=== PATIENT | male | born 1970 | race Caucasian/White ===

== ENCOUNTER → 2018-02-08 | Outpatient (CLI) | payer MEDICARE ==
[2018-02-08 11:38] LABS: Basophils % (A) 0 %; Eosinophils # (A) 0.2 k/uL (0-0.7); Eosinophils % (A) 3 %; HCT 46.9 % (39.0-53.0); HGB 14.8 gm/dL (13.0-17.5); Lymphocytes # (A) 1.1 k/uL (1.0-4.8); Lymphocytes % (A) 15 %; MCH 27.1 pg (25.0-35.0); MCHC 31.6 g/dL (31.0-37.0); MCV 85.7 fL (80.0-100.0); Mean Platelet Volume 8.7; Monocytes # (A) 0.4 k/uL (0-1.0); Monocytes % (A) 5 %; Neutrophils # (A) 5.4 k/uL (1.3-7.7); Neutrophils % (A) 75 %; Platelet Count 206 k/uL (150-450); RBC 5.48 m/uL (4.30-5.90); RDW 12.8 % (11.5-15.5); WBC 7.1 k/uL (3.8-10.6)
[2018-02-08 12:09] LABS: Albumin 4.1 g/dL (3.5-5.0); Calcium 9.9 mg/dL (8.4-10.2); Magnesium 1.5 mg/dL (1.6-2.3); Potassium 4.9 mmol/L (3.5-5.1); Total Bilirubin 0.8 mg/dL (0.2-1.3); Total Protein 6.7 g/dL (6.3-8.2)
[2018-02-08 12:21] LABS: Prothrombin Time 9.8 sec (9.0-12.0)
== END ==
LOC: LABWHC1 10:22
PROVIDERS: ATTEND Internal Medicine Advanced Heart Failure and Transplant Cardiology
DX: Z94.1 Heart transplant status (principal)
CPT/HCPCS: 36415; 80053; 80197; 83735; 85025; 85610

== ENCOUNTER → 2018-12-04 | Outpatient (CLI) | payer MEDICARE ==
[2018-12-04 10:09] LABS: Prothrombin Time 10.7 sec (9.0-12.0)
[2018-12-04 10:19] LABS: Basophils % (A) 0 %; Eosinophils # (A) 0.3 k/uL (0-0.7); Eosinophils % (A) 4 %; HCT 44.3 % (39.0-53.0); HGB 15.2 gm/dL (13.0-17.5); Lymphocytes # (A) 1.4 k/uL (1.0-4.8); Lymphocytes % (A) 22 %; MCH 29.3 pg (25.0-35.0); MCHC 34.3 g/dL (31.0-37.0); MCV 85.6 fL (80.0-100.0); Mean Platelet Volume 8.3; Monocytes # (A) 0.4 k/uL (0-1.0); Monocytes % (A) 6 %; Neutrophils # (A) 4.3 k/uL (1.3-7.7); Neutrophils % (A) 66 %; Platelet Count 176 k/uL (150-450); RBC 5.18 m/uL (4.30-5.90); RDW 15.1 % (11.5-15.5); WBC 6.6 k/uL (3.8-10.6)
[2018-12-04 16:22] LABS: African American GFR (CKD) 67.9 (60.0-200.0); Albumin 4.4 g/dL (3.80-4.90); Albumin/Globulin Ratio 2.44 (1.60-3.17); Anion Gap 10.8 mmol/L (4.00-12.00); BUN/Creat Ratio 13.57 Ratio (12.00-20.00); Calcium 9.4 mg/dL (8.7-10.3); Carbon Dioxide 27.2 mmol/L (21.6-31.8); Globulin 1.8 g/dL (1.6-3.3); Magnesium 1.2 mg/dL (1.5-2.4); Potassium 4.3 mmol/L (3.5-5.5); Total Bilirubin 1.7 mg/dL (0.2-1.2); Total Protein 6.2 g/dL (6.2-8.2)
== END | disposition home or self-care (01) ==
LOC: LABWHC1 09:14
PROVIDERS: ATTEND Internal Medicine Advanced Heart Failure and Transplant Cardiology
DX: Z94.1 Heart transplant status (principal)
CPT/HCPCS: 36415; 80053; 80197; 83735; 85025; 85610

== ENCOUNTER → 2018-12-06 | Outpatient (CLI) | payer MEDICARE | END | disposition home or self-care (01) | LOC: LABWHC1 12:44 | PROVIDERS: ATTEND Internal Medicine Advanced Heart Failure and Transplant Cardiology | DX: Z94.1 Heart transplant status (principal) | CPT/HCPCS: 36415; 80197 ==

== ENCOUNTER → 2018-12-27 | Outpatient (CLI) | payer OTHER, MEDICARE | END | disposition home or self-care (01) | LOC: LABWHC1 14:18 | PROVIDERS: ATTEND Internal Medicine | DX: Z48.21 Encounter for aftercare following heart transplant (principal); Z94.1 Heart transplant status | CPT/HCPCS: 36415 ==

== ENCOUNTER → 2019-10-23 | Outpatient (CLI) | payer MEDICARE ==
[2019-10-23 10:19] LABS: Prothrombin Time 10.2 sec (9.0-12.0)
[2019-10-23 10:45] LABS: Basophils % (A) 1 %; Eosinophils # (A) 0.3 k/uL (0-0.7); Eosinophils % (A) 5 %; HCT 44.2 % (39.0-53.0); HGB 14.5 gm/dL (13.0-17.5); Lymphocytes # (A) 1.5 k/uL (1.0-4.8); Lymphocytes % (A) 21 %; MCH 28.5 pg (25.0-35.0); MCHC 32.8 g/dL (31.0-37.0); MCV 86.8 fL (80.0-100.0); Mean Platelet Volume 9.1; Monocytes # (A) 0.4 k/uL (0-1.0); Monocytes % (A) 5 %; Neutrophils # (A) 5.1 k/uL (1.3-7.7); Neutrophils % (A) 68 %; Platelet Count 189 k/uL (150-450); RBC 5.09 m/uL (4.30-5.90); RDW 12.5 % (11.5-15.5); WBC 7.5 k/uL (3.8-10.6)
[2019-10-23 16:52] LABS: African American GFR (CKD) 57.4 (60.0-200.0); Albumin 4.6 g/dL (3.80-4.90); Albumin/Globulin Ratio 2.19 (1.60-3.17); BUN/Creat Ratio 16.25 Ratio (12.00-20.00); Calcium 9.6 mg/dL (8.7-10.3); Globulin 2.1 g/dL (1.6-3.3); Magnesium 1.5 mg/dL (1.5-2.4); Non-African American GFR(CKD) 49.5 (60.0-200.0); Potassium 5.2 mmol/L (3.5-5.5); Total Bilirubin 0.9 mg/dL (0.3-1.2); Total Protein 6.7 g/dL (6.2-8.2)
== END | disposition home or self-care (01) ==
LOC: LABWHC1 08:34
PROVIDERS: ATTEND Internal Medicine
DX: Z09 Encounter for follow-up examination after completed treatment for conditions other than malignant neoplasm (principal); Z94.1 Heart transplant status
CPT/HCPCS: 36415; 80053; 80197; 83735; 85025; 85610; 86480

== ENCOUNTER → 2020-06-04 | Outpatient (CLI) | payer MEDICARE ==
[2020-06-04 13:12] LABS: Basophils % (A) 0 %; Eosinophils # (A) 0.1 k/uL (0-0.7); Eosinophils % (A) 2 %; HCT 44.5 % (39.0-53.0); Lymphocytes # (A) 1.4 k/uL (1.0-4.8); Lymphocytes % (A) 17 %; MCH 28.3 pg (25.0-35.0); MCHC 33.7 g/dL (31.0-37.0); Mean Platelet Volume 8.7; Monocytes # (A) 0.4 k/uL (0-1.0); Monocytes % (A) 5 %; Neutrophils % (A) 75 %; Platelet Count 220 k/uL (150-450); RDW 12.9 % (11.5-15.5)
[2020-06-04 20:40] LABS: African American GFR (CKD) 67.4 (60.0-200.0); Anion Gap 8.8 mmol/L (4.00-12.00); BUN/Creat Ratio 19.29 Ratio (12.00-20.00); Calcium 9.8 mg/dL (8.7-10.3); Carbon Dioxide 30.2 mmol/L (21.6-31.8); Magnesium 1.5 mg/dL (1.5-2.4); Non-African American GFR(CKD) 58.2 (60.0-200.0); Potassium 4.8 mmol/L (3.5-5.5)
== END | disposition home or self-care (01) ==
LOC: LABWHC1 12:07
DX: Z48.21 Encounter for aftercare following heart transplant (principal); Z94.1 Heart transplant status
CPT/HCPCS: 36415; 80048; 80197; 83735; 85025

== ENCOUNTER → 2020-09-14 | Outpatient (CLI) | payer OTHER, MEDICARE ==
[2020-09-15 15:53] LABS: Albumin 4.4 g/dL (3.80-4.90); Albumin/Globulin Ratio 2.2 (1.60-3.17); Bilirubin, Conjugated 0.3 mg/dL (0.20-0.40); Bilirubin,Unconjugated 0.7 mg/dL; Total Protein 6.4 g/dL (6.2-8.2)
[2020-09-15 15:54] LABS: African American GFR (CKD) 49.4 (60.0-200.0); Anion Gap 14.4 mmol/L (4.00-12.00); BUN/Creat Ratio 16.67 Ratio (12.00-20.00); Calcium 9.2 mg/dL (8.7-10.3); Carbon Dioxide 19.6 mmol/L (21.6-31.8); Non-African American GFR(CKD) 42.6 (60.0-200.0); Potassium 4.7 mmol/L (3.5-5.5)
[2020-09-15 16:00] LABS: Prostate Specific Antigen 3.9 ng/mL (0.0-3.5)
== END | disposition home or self-care (01) ==
LOC: LABWHC1 14:42
PROVIDERS: ATTEND Student in an Organized Health Care Education/Training Program
DX: N28.89 Other specified disorders of kidney and ureter (principal); R97.20 Elevated prostate specific antigen [PSA]; Z94.1 Heart transplant status
CPT/HCPCS: 36415; 80048; 80076; 84153

== ENCOUNTER → 2021-08-11 | Outpatient (CLI) | payer MEDICARE ==
[2021-08-11 14:55] LABS: Basophils # (A) 0.04 X 10*3/uL (0.00-0.10); Basophils % (A) 0.6 %; Eosinophils # (A) 0.29 X 10*3/uL (0.04-0.35); Eosinophils % (A) 4.2 %; HCT 43.9 % (39.6-50.0); HGB 14.2 g/dL (13.0-17.0); Immature Grans, Automated 0.6 %; Lymphocytes % (A) 20.3 %; MCH 27.5 pg (27.0-32.0); MCHC 32.3 g/dL (32.0-37.0); MCV 84.9 fL (80.0-97.0); Mean Platelet Volume 12.1 fL (9.5-12.2); Monocytes # (A) 0.56 X 10*3/uL (0.20-1.00); Monocytes % (A) 8.1 %; NRBC Per 100 WBC 0 /100 WBCS (0.0-0.0); Neutrophils # (A) 4.58 X 10*3/uL (1.80-7.70); Neutrophils % (A) 66.2 %; Platelet Count 191 X 10*3/uL (140-440); RBC 5.17 X 10*6/uL (4.40-5.60); RDW 11.9 % (11.5-14.5); WBC 6.91 X 10*3/uL (4.50-10.00)
[2021-08-11 15:24] LABS: ALT 13 U/L (10-49); AST 11 U/L (14-35); African American GFR (CKD) 61.6 (60.0-200.0); Albumin 4.6 g/dL (3.8-4.9); Alkaline Phosphatase 80 U/L (41-126); BUN/Creat Ratio 14.13 Ratio (12.00-20.00); Blood Urea Nitrogen 21.2 mg/dL (9.0-27.0); Calcium 9.6 mg/dL (8.7-10.3); Carbon Dioxide 24.1 mmol/L (20.0-27.5); Chloride 104 mmol/L (96-109); Chol/HDL Ratio 2.46 Ratio; Globulin 2.3 g/dL (1.6-3.3); Glucose 123 mg/dL (70-110); LDL Cholesterol,Calculated 109.8 mg/dL (0.0-131.0); Non-African American GFR(CKD) 53.1 (60.0-200.0); Potassium 4.5 mmol/L (3.5-5.5); Sodium 142 mmol/L (135-145); Total Protein 6.9 g/dL (6.2-8.2); VLDL Calculation 10.68 mg/dL (5.00-40.00)
== END | disposition home or self-care (01) ==
LOC: LABWHC1 10:33
PROVIDERS: ATTEND Family Medicine
DX: Z00.01 Encounter for general adult medical examination with abnormal findings (principal); E11.65 Type 2 diabetes mellitus with hyperglycemia; Z94.1 Heart transplant status; E29.1 Testicular hypofunction; K21.9 Gastro-esophageal reflux disease without esophagitis
CPT/HCPCS: 80061; 80053; 85025; 84403; 36415; G0103

== ENCOUNTER 2022-01-19 17:53 | Emergency (ER) | payer OTHER, MEDICARE ==
[2022-01-19 19:02] VITALS: TEMP 98.4
[2022-01-19] MEDS ORDERED: BEBTELOVIMAB (EUA) 175 MG/2 ML VIAL IV ONE (20:00)
--- NOTE | 2022-01-19 20:13 | ED ---
General Adult HPI - General Chief complaint: Recheck/Abnormal Lab/Rx Stated complaint: Covid Time Seen by Provider: 01/19/22 19:15 Source: patient Mode of arrival: ambulatory Limitations: no limitations - History of Present Illness Initial comments: [id number] male with past medical history of cardiac transplant presents emergency room and for antibody infusion. He tested positive for Covid on Sunday. Went in to see Dr. Earl today. Cannot take Paxlovid as he is on Tacrolimus. Dr. Earl did call the emergency room at to see if it was feasible for the patient to get antibody infusion. He admits to cough, congestion, body aches. was positive as well. - Related Data Allergies Allergy/AdvReac Type Severity Reaction Status Date / Time nitroglycerin Allergy Unknown Verified 01/19/22 19:02 Penicillins Allergy Unknown Verified 01/19/22 19:02 Review of Systems ROS Statement: Those systems with pertinent positive or pertinent negative responses have been documented in the HPI. ROS Other: All systems not noted in ROS Statement are negative. Past Medical History Past Medical History: Asthma, Diabetes Mellitus Additional Past Medical History / Comment(s): heart transplant -2010 History of Any Multi-Drug Resistant Organisms: None Reported Past Surgical History: No Surgical Hx Reported Additional Past Surgical History / Comment(s): heart transplant 2010 Past Psychological History: No Psychological Hx Reported Smoking Status: Never smoker Past Alcohol Use History: None Reported Past Drug Use History: None Reported General Exam Limitations: no limitations General appearance: alert, in no apparent distress Head exam: Present: atraumatic, normocephalic, normal inspection Eye exam: Present: normal appearance, PERRL, EOMI. Absent: scleral icterus, conjunctival injection, periorbital swelling ENT exam: Present: normal exam, mucous membranes moist Neck exam: Present: normal inspection. Absent: tenderness, meningismus, lymphadenopathy Respiratory exam: Present: normal lung sounds bilaterally. Absent: respiratory distress, wheezes, rales, rhonchi, stridor Cardiovascular Exam: Present: regular rate, normal rhythm, normal heart sounds. Absent: systolic murmur, diastolic murmur, rubs, gallop, clicks GI/Abdominal exam: Present: soft, normal bowel sounds. Absent: distended, tenderness, guarding, rebound, rigid Extremities exam: Present: normal inspection, full ROM, normal capillary refill. Absent: tenderness, pedal edema, joint swelling, calf tenderness Back exam: Present: normal inspection Neurological exam: Present: alert, oriented X3, CN II-XII intact Psychiatric exam: Present: normal affect, normal mood Skin exam: Present: warm, dry, intact, normal color. Absent: rash Course Vital Signs 01/19/22 01/19/22 18:57 20:01 Temperature 98.4 F Pulse Rate 99 74 Respiratory 18 16 Rate Blood Pressure 138/83 133/68 O2 Sat by Pulse 97 97 Oximetry Medical Decision Making - Medical Decision Making On arrival patient was placed into [facility] 11. Antibody infusion is administered after pharmacy approves. Patient be discharged home and is instructed to follow up with primary care doctor in 2-4 days return for any new or worsening symptoms Disposition Clinical Impression: COVID-19, History of heart transplant Disposition: HOME SELF-CARE Condition: Stable Instructions (If sedation given, give patient instructions): Coronavirus Disease 2019 (COVID-19) Additional Instructions: Continue taking your regular medications as directed and follow-up with your doctor in 2-4 days. Return for any new or worsening symptoms Is patient prescribed a controlled substance at d/c from ED?: No Referrals: Delmi Earl III, MD [Primary Care Provider] - 1-2 days Time of Disposition: 20:12
[2022-01-19 20:30] VITALS: BP 133/68; PULSE 74; RESP 16
== END 2022-01-19 21:16 | disposition home or self-care (01) ==
LOC: EC 17:53
DX: U07.1 COVID-19 (principal); J45.909 Unspecified asthma, uncomplicated; E11.9 Type 2 diabetes mellitus without complications; Z94.1 Heart transplant status; Z88.8 Allergy status to other drugs, medicaments and biological substances; Z88.0 Allergy status to penicillin
CPT/HCPCS: 99282; Q0222

== ENCOUNTER → 2022-03-24 | Outpatient (CLI) | payer OTHER, MEDICARE ==
[2022-03-24 14:18] LABS: Basophils # (A) 0.04 X 10*3/uL (0.00-0.10); Basophils % (A) 0.5 %; Eosinophils # (A) 0.27 X 10*3/uL (0.04-0.35); Eosinophils % (A) 3.5 %; HCT 44.4 % (39.6-50.0); HGB 14.7 g/dL (13.0-17.0); Immature Grans, Automated 0.5 %; Lymphocytes # (A) 1.32 X 10*3/uL (0.90-5.00); Lymphocytes % (A) 17.1 %; MCH 27.7 pg (27.0-32.0); MCHC 33.1 g/dL (32.0-37.0); MCV 83.8 fL (80.0-97.0); Mean Platelet Volume 11.6 fL (9.5-12.2); Monocytes # (A) 0.53 X 10*3/uL (0.20-1.00); Monocytes % (A) 6.9 %; NRBC Per 100 WBC 0 /100 WBCS (0.0-0.0); Neutrophils # (A) 5.51 X 10*3/uL (1.80-7.70); Neutrophils % (A) 71.5 %; Platelet Count 220 X 10*3/uL (140-440); RDW 12.3 % (11.5-14.5); WBC 7.71 X 10*3/uL (4.50-10.00)
[2022-03-24 14:23] LABS: African American GFR (CKD) 56.6 (60.0-200.0); BUN/Creat Ratio 13.63 Ratio (12.00-20.00); Blood Urea Nitrogen 21.8 mg/dL (9.0-27.0); Calcium 9.6 mg/dL (8.7-10.3); Chloride 104 mmol/L (96-109); Chol/HDL Ratio 2.43 Ratio; Glucose 114 mg/dL (70-110); LDL Cholesterol,Calculated 60.6 mg/dL (0.0-131.0); Magnesium 1.9 mg/dL (1.5-2.4); Non-African American GFR(CKD) 48.8 (60.0-200.0); Potassium 4.8 mmol/L (3.5-5.5); Sodium 140 mmol/L (135-145)
== END | disposition home or self-care (01) ==
LOC: LABWHC1 09:59
PROVIDERS: ATTEND Internal Medicine
DX: Z94.1 Heart transplant status (principal)
CPT/HCPCS: 36415; 80048; 80061; 80197; 83735; 85025

== ENCOUNTER → 2023-02-14 | Outpatient (CLI) | payer MEDICARE ==
[2023-02-14 16:17] LABS: ALT 23 U/L (10-49); AST 14 U/L (14-35); Albumin 4.7 d/dL (3.8-4.9); Albumin/Globulin Ratio 1.96 Ratio (1.60-3.17); Alkaline Phosphatase 108 U/L (41-126); Blood Urea Nitrogen 19.8 mg/dL (9.0-27.0); Calcium 10.1 mg/dL (8.7-10.3); Carbon Dioxide 26.1 mmol/L (21.6-31.8); Chloride 104 mmol/L (96-109); Chol/HDL Ratio 2.31 Ratio; Creatine Kinase 62 U/L (35-257); Globulin 2.4 d/dL (1.6-3.3); Glucose 77 mg/dL (70-110); LDL Cholesterol,Calculated 72.8 mg/dL (0.0-131.0); Potassium 4.9 mmol/L (3.5-5.5); Sodium 143 mmol/L (135-145); Total Bilirubin 1.1 mg/dL (0.3-1.2); Total Protein 7.1 d/dL (6.2-8.2); Uric Acid 6.8 mg/dL (3.7-8.7); VLDL Calculation 16.74 mg/dL (5.00-40.00)
[2023-02-14 16:24] LABS: Basophils # (A) 0.05 X 10*3/uL (0.00-0.10); Basophils % (A) 0.6 %; Eosinophils # (A) 0.31 X 10*3/uL (0.04-0.35); Eosinophils % (A) 3.6 %; HCT 43.3 % (39.6-50.0); HGB 14.2 d/dL (13.0-17.0); Lymphocytes # (A) 1.99 X 10*3/uL (0.90-5.00); Lymphocytes % (A) 23.3 %; MCH 28.2 pg (27.0-32.0); MCHC 32.8 d/dL (32.0-37.0); MCV 85.9 FL (80.0-97.0); Mean Platelet Volume 11.5 FL (9.5-12.2); Monocytes # (A) 0.52 X 10*3/uL (0.20-1.00); Monocytes % (A) 6.1 %; NRBC Per 100 WBC 0 X 10*3/uL (0.00-0.01); Neutrophils # (A) 5.63 X 10*3/uL (1.80-7.70); Neutrophils % (A) 65.9 %; Platelet Count 210 X 10*3/uL (140-440); RBC 5.04 X 10*6/uL (4.40-5.60); RDW 12.1 % (11.5-14.5); WBC 8.54 X 10*3/uL (4.50-10.00)
[2023-02-14 16:50] LABS: Follicle Stimulating Hormone 4.3 mIU/mL; Luteinizing Hormone 5.6 mIU/mL
== END | disposition home or self-care (01) ==
LOC: LABWHC1 11:09
PROVIDERS: ATTEND Family Medicine
DX: I10 Essential (primary) hypertension (principal); E11.65 Type 2 diabetes mellitus with hyperglycemia; E29.1 Testicular hypofunction; N40.0 Benign prostatic hyperplasia without lower urinary tract symptoms; R94.4 Abnormal results of kidney function studies; Z94.1 Heart transplant status
CPT/HCPCS: 36415; 80053; 80061; 82550; 83001; 83002; 83036; 83970; 84153; 84402; 84403; 84443; 84550; 85025

== ENCOUNTER → 2023-08-24 | Outpatient (CLI) | payer MEDICARE | END | disposition home or self-care (01) | LOC: LABWHC1 08:41 | PROVIDERS: ATTEND Family Medicine | DX: Z53.9 Procedure and treatment not carried out, unspecified reason (principal) ==

== ENCOUNTER → 2023-12-28 | Outpatient (CLI) | payer MEDICARE | END | disposition home or self-care (01) | LOC: LABWHC1 13:20 | PROVIDERS: ATTEND Family Medicine | DX: Z94.1 Heart transplant status (principal) | CPT/HCPCS: 36415; 80053; 80061; 80197; 82043; 82570; 82785; 83036; 83735; 83880; 83970; 84402; 84403; 84443; 85025 ==

== ENCOUNTER → 2024-03-31 | Outpatient (CLI) | payer MEDICARE ==
--- NOTE | 2024-04-01 10:28 | BD ---
EXAMINATION TYPE: Axial Bone Density DATE OF EXAM: 03/31/2024 CLINICAL HISTORY: 53 years old Male. ICD-10 CODE: Z79.52 RETIREMENT (CURRENT) USE OF SYSTEMIC STEROID , Additional History: Height: 63.5 in Weight: 129 lbs pt had a heart transplant 2009 EXAM MEASUREMENTS: Bone mineral densitometry was performed using the [employer] System. Bone mineral density as measured about the Lumbar spine is: ----- L1-L4(G/cm2): 1.074 T Score Values are as follows: ----- L1: -1.3 ----- L2: -1.2 ----- L3: -0.4 ----- L4: -0.8 ----- L1-L4: -0.9 Z Score Values are as follows: ----- L1: -0.6 ----- L2: -0.6 ----- L3: 0.1 ----- L4: -0.2 ----- L1-L4: -0.3 Bone mineral density baseline Bone mineral density about the R hip (g/cm2): 0.761 Bone mineral density about the L hip (g/cm2): 0.818 T Score values are as follows: -----R Neck: -2.4 -----L Neck: -2.3 -----R Total: -2.0 -----L Total: -1.5 Z Score values are as follows: -----R Neck: -1.7 -----L Neck: -1.5 -----R Total: -1.6 -----L Total: -1.2 Bone mineral density baseline FRAX%s: The graph provided illustrates a 7.9% chance for a major osteoporotic fx and a 2.4% chance fo r the hips probability for fx in 10 years time. IMPRESSION: Osteopenia (T Score between -2.5 and -1). There is slightly increased risk of fracture and the patient may be considered for treatment. Re-Screen 2-5 years. NOTE: T-SCORE=SD OF THE YOUNG ADULT MEAN. [facility], , 04/01/2024 10:25 AM
== END | disposition home or self-care (01) ==
LOC: RADBDWWP 13:43
PROVIDERS: ATTEND Internal Medicine
DX: Z13.820 Encounter for screening for osteoporosis (principal); M85.80 Other specified disorders of bone density and structure, unspecified site; Z94.1 Heart transplant status; Z79.52 Long term (current) use of systemic steroids
CPT/HCPCS: 77080

== ENCOUNTER → 2024-05-02 | Outpatient (CLI) | payer MEDICARE ==
[2024-05-02 16:13] LABS: Basophils # (A) 0.05 X 10*3/uL (0.00-0.10); Basophils % (A) 0.6 %; Eosinophils # (A) 0.29 X 10*3/uL (0.04-0.35); Eosinophils % (A) 3.3 %; HCT 40.8 % (39.6-50.0); HGB 13.9 g/dL (13.0-17.0); Lymphocytes # (A) 2.14 X 10*3/uL (0.90-5.00); Lymphocytes % (A) 24.1 %; MCH 28.4 pg (27.0-32.0); MCHC 34.1 g/dL (32.0-37.0); MCV 83.3 FL (80.0-97.0); Mean Platelet Volume 11.4 FL (9.5-12.2); Monocytes # (A) 0.63 X 10*3/uL (0.20-1.00); Monocytes % (A) 7.1 %; NRBC Per 100 WBC 0 X 10*3/uL (0.00-0.01); Neutrophils # (A) 5.75 X 10*3/uL (1.80-7.70); Neutrophils % (A) 64.6 %; Platelet Count 218 X 10*3/uL (140-440); RDW 12.3 % (11.5-14.5); WBC 8.89 X 10*3/uL (4.50-10.00)
[2024-05-02 16:42] LABS: Chol/HDL Ratio 2.42 Ratio; VLDL Calculation 16.56 mg/dL (5.00-40.00)
[2024-05-02 16:43] LABS: ALT 37 U/L (10-49); AST 22 U/L (14-35); Albumin 4.7 g/dL (3.8-4.9); Albumin/Globulin Ratio 1.81 Ratio (1.60-3.17); Alkaline Phosphatase 108 U/L (41-126); BUN/Creat Ratio 15.06 Ratio (12.00-20.00); Blood Urea Nitrogen 27.1 mg/dL (9.0-27.0); Calcium 9.8 mg/dL (8.7-10.3); Chloride 101 mmol/L (96-109); Globulin 2.6 g/dL (1.6-3.3); Glucose 84 mg/dL (70-110); LDL Cholesterol,Calculated 73.8 mg/dL (0.0-131.0); Magnesium 1.7 mg/dL (1.5-2.4); Phosphorus 3.9 mg/dL (2.4-5.1); Potassium 4.8 mmol/L (3.5-5.5); Prostate Specific Antigen 4.93 ng/mL (0.000-3.500); Sodium 138 mmol/L (135-145); T4, Free (Free Thyroxine) 1.33 ng/dL (0.80-1.80); Total Bilirubin 0.8 mg/dL (0.3-1.2); Total Protein 7.3 g/dL (6.2-8.2)
== END | disposition home or self-care (01) ==
LOC: LABWHC1 09:18
PROVIDERS: ATTEND Family Medicine
DX: Z00.01 Encounter for general adult medical examination with abnormal findings (principal); E11.65 Type 2 diabetes mellitus with hyperglycemia; E55.9 Vitamin D deficiency, unspecified; D51.9 Vitamin B12 deficiency anemia, unspecified; E29.1 Testicular hypofunction; N18.31 Chronic kidney disease, stage 3a; N40.0 Benign prostatic hyperplasia without lower urinary tract symptoms; Z79.52 Long term (current) use of systemic steroids; Z94.1 Heart transplant status
CPT/HCPCS: 36415; 80053; 80061; 80197; 82043; 82306; 82570; 82607; 83036; 83735; 83970; 84100; 84153; 84403; 84439; 84443; 85025

== ENCOUNTER → 2024-11-27 | Outpatient (CLI) | payer MEDICARE ==
[2024-11-27 15:12] LABS: Basophils # (A) 0.04 X 10*3/uL (0.00-0.10); Basophils % (A) 0.6 %; Eosinophils # (A) 0.28 X 10*3/uL (0.04-0.35); Eosinophils % (A) 4.1 %; HCT 42.4 % (39.6-50.0); HGB 13.8 g/dL (13.0-17.0); Immature Grans, Automated 0.30 %; Lymphocytes # (A) 1.48 X 10*3/uL (0.90-5.00); Lymphocytes % (A) 21.4 %; MCH 27.7 pg (27.0-32.0); MCHC 32.5 g/dL (32.0-37.0); MCV 85.0 FL (80.0-97.0); Monocytes # (A) 0.56 X 10*3/uL (0.20-1.00); Monocytes % (A) 8.1 %; NRBC Per 100 WBC 0 X 10*3/uL (0.00-0.01); Neutrophils # (A) 4.52 X 10*3/uL (1.80-7.70); Neutrophils % (A) 65.5 %; Platelet Count 217 X 10*3/uL (140-440); RBC 4.99 X 10*6/uL (4.40-5.60); RDW 12.0 % (11.5-14.5); WBC 6.90 X 10*3/uL (4.50-10.00)
[2024-11-27 15:18] LABS: ALT 18 U/L (10-49); AST 14 U/L (14-35); Albumin 4.4 g/dL (3.8-4.9); Albumin/Globulin Ratio 1.63 Ratio (1.60-3.17); Alkaline Phosphatase 115 U/L (41-126); Anion Gap 11.70 mmol/L (4.00-12.00); BUN/Creat Ratio 13.53 Ratio (12.00-20.00); Blood Urea Nitrogen 23.0 mg/dL (9.0-27.0); Calcium 9.6 mg/dL (8.7-10.3); Carbon Dioxide 27.3 mmol/L (21.6-31.8); Chloride 114 mmol/L (96-109); Globulin 2.7 g/dL (1.6-3.3); Glucose 101 mg/dL (70-110); Magnesium 1.7 mg/dL (1.5-2.4); Potassium 4.9 mmol/L (3.5-5.5); Sodium 153 mmol/L (135-145); Total Protein 7.1 g/dL (6.2-8.2)
== END | disposition home or self-care (01) ==
LOC: LABWHC1 09:19
PROVIDERS: ATTEND Internal Medicine
DX: Z94.1 Heart transplant status (principal)
CPT/HCPCS: 36415; 80053; 80197; 83735; 85025